=== PATIENT | female | born 1965 | race African-American/Black ===

== ENCOUNTER 2023-10-30 11:02 | Outpatient (CLI) | payer BC, SELFPAY ==
--- NOTE | ~2023-10-30 | CT_ITS ---
CT abdomen pelvis wo con Ordering provider: Blessing Menjivar, [employer] SUPERVISOR History: 58 years Female with . RT Kidney Stone . Comparison: None. Technique: CT abdomen and pelvis with IV and without oral contrast. Automated exposure control and it erative reconstruction technique were employed. The dose-length product was 866.20 mGy-cm. Findings: VISUALIZED LOWER CHEST: Normal. UPPER ABDOMINAL ORGANS: Liver: Fat infiltration. Gallbladder: Normal. Spleen: Normal. Stomach/duodenum: Small sliding hiatus hernia. Pancreas: Normal. Adrenals: Normal. Kidneys: Tiny stone in the left kidney lower pole. Small cyst in the left kidney upper pole. Small cyst in the right kidney upper pole. Right hydronephrotic changes. Stone is seen in the right l ower ureter measuring 7 mm. No stones are seen in the right kidney lower pole measuring 10 and 6 mm. PELVIC ORGANS: The bladder is underfilled. BOWEL AND MESENTERY: Colon: No evidence of diverticulitis. Normal appendix. Small Bowel: Normal. No obstruction. Peritoneum/mesentery: No free air or free fluid. No mesenteric lymphadenopathy. RETROPERITONEUM: Mild atheromatous disease of the abdominal aorta. No retroperitoneal lymphadenopat hy. MUSCULOSKELETAL: Superficial soft tissues: The superficial soft tissues are normal. Bones: Age appropriate degenerative changes of the spine. IMPRESSION: 1. Stone in the right lower ureter with right hydroureter and hydronephrotic changes. 2. Multiple right kidney stones. Bilateral renal cysts. 3. Fat infiltration of the liver. Reviewed, dictated and finalized at location A. IMPRESSION: 1. Stone in the right lower ureter with right hydroureter and hydronephrotic c hanges. 2. Multiple right kidney stones. Bilateral renal cysts. 3. Fat infiltration of the liver.
--- NOTE | ~2023-10-30 | XR_ITS ---
XR abdomen/kub 1V Ordering provider: Blessing Menjivar, ASIC VERIFICATION ENGINEER History: . RIGHT RENAL STONE . Comparison: None. FINDINGS: BOWEL: Nonobstructive bowel gas pattern. ORGANOMEGALY: None. SIGNIFICANT PATHOLOGIC CALCIFICATIONS: Tiny calcific shadow is seen in the right side of the pelvis n ear to the sacrum which may be a stone. Follow-up advised. OTHER: No free air is seen under the diaphragm. IMPRESSION: NO ACUTE ABDOMINAL FINDINGS. Possible tiny stone in the right side of the pelvis. Follow-up advised. Reviewed, dictated and finalized at location A.
== END 2023-10-30 11:03 | disposition home or self-care (01) ==
PROVIDERS: Visit Provider Nurse Practitioner Family
DX: N20.0 Calculus of kidney (principal)
CPT/HCPCS: 74018; 74176